=== PATIENT | male | born 1995 | race Caucasian/White ===

== ENCOUNTER 2019-08-07 22:03 | Emergency (ER) | payer BC, OTHER ==
[2019-08-07] MEDS ORDERED: Ketorolac INJ* 30 MG/ML 1 ML VIAL IM ONE (22:25)
[2019-08-07] MEDS ORDERED: Diazepam TAB(*) 5 MG PO ONE (22:25)
--- NOTE | 2019-08-07 22:55 | ED ---
Back Pain - HPI Summary HPI Summary: 23-year-old male presents with back pain today. He states that he was bending down to get something and felt some back pain. He states that he tried walking and his back pain increased. He states that since then he has not been able to stand up. He denies any loss of bowel or bladder. No saddle anesthesias. No pain to legs. He had a previous herniated disc that was repaired at L5-S1. He states pain is located above the straight. Has no medical conditions. Not taking anything for his pain. - History of Current Complaint Chief Complaint: EDBackInjuryPain Stated Complaint: BACK PAIN PER EMS Time Seen by Provider: 08/07/19 22:16 Pain Intensity: 6 - Allergies/Home Medications Allergies/Adverse Reactions: Allergies Allergy/AdvReac Type Severity Reaction Status Date / Time No Known Allergies Allergy Verified 08/07/19 22:09 PMH/Surg Hx/FS Hx/Imm Hx Endocrine/Hematology History: Denies: Hx Anticoagulant Therapy Respiratory History: Denies: Hx Asthma - Surgical History Surgery Procedure, Year, and Place: L5-S1 disc repair - Immunization History Date of Tetanus Vaccine: utd Date of Influenza Vaccine: none Infectious Disease History: No Infectious Disease History: Denies: Traveled Outside the [place] in Last 30 Days - Family History Known Family History: Positive: Non-Contributory - Social History Alcohol Use: Occasionally Substance Use Type: Reports: None Smoking Status (MU): Never Smoked Tobacco Review of Systems Negative: Fever Negative: Chest Pain Negative: Shortness Of Breath Positive: Myalgia - back pain All Other Systems Reviewed And Are Negative: Yes Physical Exam Triage Information Reviewed: Yes Vital Signs On Initial Exam: Initial Vitals Temp Pulse Resp BP Pulse Ox 98.3 F 77 15 134/87 96 08/07/19 22:07 08/07/19 22:07 08/07/19 22:07 08/07/19 22:07 08/07/19 22:07 Vital Signs Reviewed: Yes Appearance: Positive: Well-Appearing Skin: Positive: Warm, Dry Head/Face: Positive: Normal Head/Face Inspection Eyes: Positive: Normal, Conjunctiva Clear ENT: Positive: Pharynx normal Respiratory/Lung Sounds: Positive: Clear to Auscultation, Breath Sounds Present Cardiovascular: Positive: Normal, RRR Musculoskeletal: Positive: Limited @ - back, Other - tenderness lower back, sensation grossly intact Neurological: Positive: Normal, Babinski Bilateral - normal Psychiatric: Positive: Normal Procedures - Sedation Patient Received Moderate/Deep Sedation with Procedure: No Diagnostics - Vital Signs Vital Signs Temp Pulse Resp BP Pulse Ox 08/07/19 22:48 16 08/07/19 22:07 98.3 F 77 15 134/87 96 - Laboratory Lab Statement: Any lab studies that have been ordered have been reviewed, and results considered in the medical decision making process. - CT lumbar CT Interpretation Completed By: Radiologist Summary of CT Findings: IMPRESSION: Posterior broad-based disc bulge at L5-S1 causing at least mild canal narrowing. This can be further evaluated with MRI lumbar spine, if clinically indicated. Re-Evaluation - Re-Evaluation First Eval Change: Unchanged Comment: pain still present Second Eval Re-Evaluation Time: 00:59 Change: Unchanged Comment: pain no change Third Eval Re-Evaluation Time: 01:38 Change: Improved Comment: feeling better until moves Back Pain Course/Dx - Course Course Of Treatment: 23-year-old male presents with back pain today. He states that he was bending down to get something and felt some back pain. He states that he tried walking and his back pain increased. He states that since then he has not been able to stand up. He denies any loss of bowel or bladder. No saddle anesthesias. No pain to legs. He had a previous herniated disc that was repaired at L5-S1. He states pain is located above the straight. Has no medical conditions. On exam tenderness lower back L2- L4. Neurovascular intact. CT shows herniated disc at L5-S1. Gave Toradol and valium and percocet without any relief. Gave morphine and Decadron and feeling better. will discharge with pain meds, muscle relaxer. told follow up with neurosurgery. patient understand and agrees with plan. - Diagnoses Differential Diagnosis/HQI/PQRI: Positive: Herniated Disc, Strain, Sprain Provider Diagnoses: Back pain Discharge ED - Sign-Out/Discharge Documenting (check all that apply): Patient Departure - Discharge Plan Condition: Good Disposition: HOME Prescriptions: HYDROcodone/ACETAMIN 5-325 MG* [[place] 5-325 TAB*] 1 tab PO Q6H PRN #16 tab MDD 4 PRN Reason: Pain - Severe Methocarbamol TAB* [Robaxin 500 MG TAB*] 500 mg PO TID PRN #21 tab PRN Reason: Pain - Moderate methylPREDNISolone TAB* [Medrol TAB*] 4 - 8 mg PO .SEE [place] #1 fallon Patient Education Materials: Back Pain (ED) Forms: *School Release Referrals: [facility] [Outside] Toro Cardenas MD [Medical Doctor] - Additional Instructions: Follow directions on package for Medrol pack Take muscle relaxers (robaxin) three times a day Use ibuprofen or Tylenol for pain every 6 hours, use norco for break through pain every 6 hours ice/heat area, move as much as possible Follow up with [facility] within 5 days follow up with neurosurgery Return to ED if develop any new or worsening symptoms - Billing Disposition and Condition Condition: GOOD Disposition: Home
[2019-08-07] MEDS ORDERED: oxyCODONE/Acetamin 5/325 MG* TAB PO ONE (23:22)
[2019-08-07] MEDS ORDERED: Lidocaine PATCH 5%* 1 PATCH TRANSDERM ONE (23:39)
[2019-08-08] MEDS ORDERED: Dexamethasone IV* 4 MG/ML 1 ML (4 MG) IV SLOW PU ONE (00:47)
[2019-08-08] MEDS ORDERED: Morphine 4 MG/ML VIAL (1 ml) 4 MG/ML VIAL IV ONE (00:48)
[2019-08-08] MEDS ORDERED: Methocarbamol TAB* 500 MG PO ONE (02:07)
[2019-08-08 02:46] VITALS: BP 123/77
[2019-08-08] MEDS ORDERED: Lidocaine Patch REMOVE* 1 NOTE MISC SCH (21:00)
== END 2019-08-08 02:46 | disposition home or self-care (01) ==
LOC: ED 22:03
DX: M54.9 Dorsalgia, unspecified (principal)
CPT/HCPCS: 72131; 96372; 96374; 96375; 99282; A9270-GY; J1100; J1885; J2270

== ENCOUNTER 2019-12-02 21:53 | Emergency (ER) | payer OTHER ==
[2019-12-02 22:18] LABS: Rapid Strep Molecular Negative (Negative)
[2019-12-02 22:24] LABS: Influenza A Molecular Negative (Negative); Influenza B Molecular Negative (Negative)
--- NOTE | 2019-12-02 22:49 | ED ---
Influenza-Like Illness - HPI Summary HPI Summary: Patient is a 23 y/o M presenting to [facility] with complaints of fever of 103 F, chills, fatigue, light-headedness, and sore throat. He states that Sx onset this morning and notes that he felt light-headed and fatigued after ambulating to class. Chills subsequently onset. He notes some pain with swallowing but is capable of swallowing overall. CP and SOB are denied. Patient has been treating his Sx with ibuprofen and Tylenol. Girlfriend was diagnosed with tonsillitis and is being treated with antibiotics; however, her strep throat test was negative. No PMHx noted. 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 Home medications and allergies are reviewed. - History of Current Complaint Chief Complaint: EDFever Time Seen by Provider: 12/02/19 22:37 Hx Obtained From: Patient Onset/Duration: Lasting Hours, Still Present Severity: Moderate Associated Signs & Symptoms: Fever, T Max - 103 F, F/C, Sore Throat - Allergy/Home Medications Allergies/Adverse Reactions: Allergies Allergy/AdvReac Type Severity Reaction Status Date / Time No Known Allergies Allergy Verified 12/02/19 21:57 PMH/Surg Hx/FS Hx/Imm Hx Endocrine/Hematology History: Denies: Hx Anticoagulant Therapy, Hx Diabetes Cardiovascular History: Denies: Hx Hypertension Respiratory History: Denies: Hx Asthma - Surgical History Surgery Procedure, Year, and Place: L5-S1 disc repair - Immunization History Date of Tetanus Vaccine: utd Date of Influenza Vaccine: none Infectious Disease History: No Infectious Disease History: Denies: Traveled Outside the [place] in Last 30 Days - Family History Known Family History: Negative: Hypertension, Diabetes - Social History Alcohol Use: Occasionally Substance Use Type: Reports: None Smoking Status (MU): Never Smoked Tobacco Review of Systems Constitutional: Other - positive - light-headedness Positive: Fever, Chills, Fatigue ENT: Other - pain with swallowing but can swallow overall Positive: Sore Throat Negative: Chest Pain Negative: Shortness Of Breath All Other Systems Reviewed And Are Negative: Yes Physical Exam - Summary Physical Exam Summary: Appearance: Well-appearing, Well-nourished, lying in bed comfortably Skin: Warm, dry, no obvious rash Eyes: sclera anicteric, no conjunctival pallor ENT: mucous membranes moist, throat has mild peritonsilar inflammation with no exudates. Neck: Supple, nontender Respiratory: Clear to auscultation, no signs of respiratory distress Cardiovascular: Normal S1, S2. No murmurs. Normal distal pulses in tibial and radial bilaterally. Abdomen: Soft, nontender, normal active bowel sounds present Musculoskeletal: Normal, Strength/ROM Intact Neurological: A&Ox3, awake and alert, mentation is normal, speech is fluent and appropriate Psychiatric: affect is normal, does not appear anxious or depressed Triage Information Reviewed: Yes Vital Signs On Initial Exam: Initial Vitals Temp Pulse Resp BP Pulse Ox 98.2 F 106 15 118/74 94 12/02/19 21:55 12/02/19 21:55 12/02/19 21:55 12/02/19 21:55 12/02/19 21:55 Vital Signs Reviewed: Yes Procedures - Sedation Patient Received Moderate/Deep Sedation with Procedure: No Diagnostics - Vital Signs Vital Signs Temp Pulse Resp BP Pulse Ox 12/02/19 21:55 98.2 F 106 15 118/74 94 - Laboratory Lab Results: Lab Results 12/02/19 12/02/19 Range/Units 22:00 22:00 Influenza A (Rapid) Negative (Negative) Influenza B (Rapid) Negative (Negative) Group A Strep Rapid Negative (Negative) Lab Statement: Any lab studies that have been ordered have been reviewed, and results considered in the medical decision making process. Flu Symptom Course/Dx - Course Course Of Treatment: Patient is a 23 y/o M presenting to [facility] with complaints of fever of 103 F, chills, fatigue, light-headedness, and sore throat. He states that Sx onset this morning and notes that he felt light-headed and fatigued after ambulating to class. Chills subsequently onset. He notes some pain with swallowing but is capable of swallowing overall. CP and SOB are denied. Patient has been treating his Sx with ibuprofen and Tylenol. Girlfriend was diagnosed with tonsillitis and is being treated with antibiotics; however, her strep throat test was negative. No PMHx noted. On physical exam, throat has mild peritonsilar inflammation with no exudates. Influenza A, B and Group A Strep Rapid tests were all negative. Patient was discharged to home with PCP followup. - Diagnoses Provider Diagnoses: Pharyngitis Discharge ED - Sign-Out/Discharge Documenting (check all that apply): Patient Departure - discharge - Discharge Plan Condition: Good Disposition: HOME Patient Education Materials: Pharyngitis (ED) Referrals: [facility] [Outside] No Primary Care Phys,NOPCP [Primary Care Provider] - Additional Instructions: Your tests for strep and influenza tonight came back negative, so this is likely a viral sore throat. For now just symptomatic care for fever and pain is all that is needed, but if your symptoms worsen we should see you back, or go to [facility]. - Billing Disposition and Condition Condition: GOOD Disposition: Home - Attestation Statements Document Initiated by Juliana: Yes Documenting Scribe: INGA FERREIRA Provider For Whom Juliana is Documenting (Include Credential): LI ORR MD Scribe Attestation: I, INGA FERREIRA, scribed for LI ORR MD on 12/06/19 at 1839. Scribe Documentation Reviewed: Yes Provider Attestation: The documentation as recorded by the INGA pfeiffer accurately reflects the service I personally performed and the decisions made by me, LI ORR MD Status of Scribe Document: Viewed
[2019-12-02 23:01] VITALS: BP 128/74
== END 2019-12-02 22:59 | disposition home or self-care (01) ==
LOC: ED 21:53
DX: J02.9 Acute pharyngitis, unspecified (principal); R50.9 Fever, unspecified; R53.83 Other fatigue; R42 Dizziness and giddiness
CPT/HCPCS: 87651; 99282